=== PATIENT | female | born 1945 ===

== ENCOUNTER 2018-04-22 15:45 | Emergency (ER) | payer OTHER, MEDICARE ==
--- NOTE | 2018-04-22 16:44 | EDPHY ---
H & P Stated Complaint: isatu gland left jaw, fever, pain Time Seen by Provider: 04/22/18 16:43 HPI/ROS: HPI: This is a 72-year-old female who presents with Chief Complaint: swollen gland left jaw, fever, pain Location: Left jaw Quality: Swollen glands and pain Duration: 2 week Signs and Symptoms: + subjective fever, no nausea, no vomiting, no diarrhea, no urinary symptoms, no chest pain, no shortness of breath, no wheezing, no cough, + sore throat, no neck stiffness, no joint pain, + swollen glands, no ear pain, no rash Timing: Worsening Severity: Moderate to severe Context: Patient reports that she is generally healthy around March 31, 2018 came under the weather with the "flu."She reports that her symptoms lasted approximately 2 weeks. Last Friday she started to developed some right jaw pain with swollen glands. Over the last 4 days the pain and swelling has continued to increase. She is unable to open her mouth fully at this point. Reports that she spiked a fever of 102 F today for the 1st time. She saw ENT outpatient yesterday Elisa Hunt, who started her on Augmentin, and patient has taken 3 doses of this medication. She reports that the pain is "unbearable today." ENT took a culture and she was called today and was told that it was negative for strep. She advised that "the ENT told her that this was a tonsillar abscess but did not perform an incision and drainage in the office." Last drink was water and around 12 noon. Has not eaten food in several days. Modifying Factors: Augmentin Comment: ROS: A comprehensive 10 system review of systems is otherwise negative aside from elements mentioned in the history of present illness. MEDICAL/SURGICAL/SOCIAL HISTORY: Medical history: Generally healthy. Does not take any regular medications. Surgical history: Denies Social history: Never smoked. . Retired. Family history noncontributory. CONSTITUTIONAL: Nontoxic-appearing elderly white female, awake and alert, no obvious distress HEENT: Atraumatic and normocephalic, PERRL, EOMI. Nares patent; no rhinorrhea; no nasal mucosal edema. Tympanic membranes clear. Oropharynx clear, only able to open mouth 1 finger with wide-+trismus and unable to visualize posterior pharynx, uvula, tonsils. dry oral mucosa. Airway patent. Tenderness over the right TMJ joint with right sided anterior cervical lymphadenopathy. No meningismus. Cardiovascular: Normal S1/S2, regular rate, regular rhythm, without murmur rub or gallop. PULMONARY/CHEST: Symmetrical and nontender. Clear to auscultation bilaterally. Good air movement. No accessory muscle usage. ABDOMEN: Soft, nondistended, nontender, no rebound, no guarding, no peritoneal signs, no masses or organomegaly. No CVAT. EXTREMITIES: 2/2 pulses, strength 5/5, no deformities, no clubbing, no cyanosis or edema. NEUROLOGICAL: no focal neuro deficits. GCS 15. SKIN: Warm and dry, no erythema. no rash. Good capillary refill. Source: Patient Exam Limitations: No limitations - Personal History Current Tetanus/Diphtheria Vaccine: Unsure Current Tetanus Diphtheria and Acellular Pertussis (TDAP): Unsure - Medical/Surgical History Hx Asthma: No Hx Chronic Respiratory Disease: No Hx Diabetes: No Hx Cardiac Disease: No Hx Renal Disease: No Hx Cirrhosis: No Hx Alcoholism: No Hx HIV/AIDS: No Hx Splenectomy or Spleen Trauma: No Other PMH: denials - Social History Smoking Status: Never smoked Constitutional: Initial Vital Signs Temperature (C) 37 C 04/22/18 15:56 Heart Rate 98 04/22/18 15:56 Respiratory Rate 16 04/22/18 15:56 Blood Pressure 151/82 H 04/22/18 15:56 O2 Sat (%) 95 04/22/18 15:56 O2 Delivery Mode Room Air Allergies/Adverse Reactions: No Known Allergies Allergy (Unverified 04/22/18 15:55) Home Medications: Medication Instructions Recorded NK [No Known Home Meds] 04/22/18 Medical Decision Making - Diagnostics Imaging Results: Imaging Impressions Neck CT 04/22/18 16:49 Impression: 1. Small fluid collection medial to the right posterior lower jaw molar, 1 x 1.2 x 1.8 cm. 2. The root of the last molar tooth on the right lower jaw has broken through the medial cortex of the mandible. Could this be an instigating event for the fluid collection? 3. Associated parapharyngeal space swelling on the right, and extensive amount of phlegmonic inflamed tissue, 16 to 20 mm in depth, caudal to the abscess along the medial cortex of the lower jaw. This is displacing the base of the tongue to the left side. 4. Enlarged draining veins on the right, without identifiable central venous occlusion. 5. Incidental left thyroid dominant nodule of 2 x 1 x 1.2 cm. ED Course/Re-evaluation: Vital signs reviewed and tachycardia upon arrival. Does not meet sepsis criteria. IV access, laboratory studies, CT soft tissue neck ordered I-STAT Patient given 2 L normal saline, IV Decadron 10 mg, IV morphine 2 mg Will not recall to this patient as performed outpatient and negative strep. 1743: Labs reviewed. No signs of anemia/platelet dysfunction/BRITTNEE/electrolyte imbalance. WBC 11 K with left shift 1829: Called by radiologist, Dr. Tomlinson, who advised that CT neck shows small fluid collection medial to the right posterior lower jaw molar measuring 1 x 1.2 x 1.8 cm. Through the last molar tooth on the right lower jaw has broken through the medial cortex of the mandible. Associated parapharyngeal space swelling on the right an extensive amount of phlegmon kenneth inflamed tissue measuring 16-20 mm in depth caudal to the abscess along the medial cortex of the lower jaw this is displaced in the base of the tongue to the left side. Enlarged draining veins on the right without identifiable central venous occlusion. No tonsillar abscess. 1834: ED decision to consult Oral surgery. 1936: Called by [facility]. Maxillofacial surgeon, Dr. Matti Bailey, requesting CT soft tissue neck be uploaded into their system to review. 1956: Spoke with Dr. Bailey who kindly agrees to accept patient in transfer to the emergency room at [facility]. Request Unasyn 3 g to be given. Spoke with Dr. Bah ER attending who kindly agrees to accept patient ER to ER transfer. This patient was seen under the supervision of my supervising physician. I evaluated care for this patient with attending. Discussed this patient with Dr. Patel who did not see the patient. Differential Diagnosis: Differential diagnosis includes but is not limited to tonsillar abscess, tonsillar pharyngitis, lymphadenitis, malignancy. - Data Points Laboratory Results: Laboratory Results 04/22/18 16:58 04/22/18 16:58 04/22/18 04/22/18 04/22/18 17:03 16:58 16:58 WBC 11.14 10^3/uL H 10^3/uL (3.80-9.50) RBC 4.62 10^6/uL 10^6/uL (4.18-5.33) Hgb 13.4 g/dL g/dL (12.6-16.3) POC Hgb 14.3 gm/dL gm/dL (12.6-16.3) Hct 40.8 % % (38.0-47.0) POC Hct 42 % % (38-47) MCV 88.3 fL fL (81.5-99.8) MCH 29.0 pg pg (27.9-34.1) MCHC 32.8 g/dL g/dL (32.4-36.7) RDW 12.5 % % (11.5-15.2) Plt Count 385 10^3/uL 10^3/uL (150-400) MPV 8.9 fL fL (8.7-11.7) Neut % (Auto) 81.6 % H % (39.3-74.2) Lymph % (Auto) 11.8 % L % (15.0-45.0) [place] % (Auto) 6.0 % % (4.5-13.0) Eos % (Auto) 0.2 % L % (0.6-7.6) Baso % (Auto) 0.1 % L % (0.3-1.7) Nucleat RBC Rel Count 0.0 % % (0.0-0.2) Absolute Neuts (auto) 9.10 10^3/uL H 10^3/uL (1.70-6.50) Absolute Lymphs (auto) 1.31 10^3/uL 10^3/uL (1.00-3.00) Absolute Monos (auto) 0.67 10^3/uL 10^3/uL (0.30-0.80) Absolute Eos (auto) 0.02 10^3/uL L 10^3/uL (0.03-0.40) Absolute Basos (auto) 0.01 10^3/uL L 10^3/uL (0.02-0.10) Absolute Nucleated RBC 0.00 10^3/uL 10^3/uL (0-0.01) Immature Gran % 0.3 % % (0.0-1.1) Immature Gran # 0.03 10^3/uL 10^3/uL (0.00-0.10) POC Sodium 141 mEq/L mEq/L (135-145) Sodium 137 mEq/L mEq/L (135-145) POC Potassium 3.5 mEq/L mEq/L (3.3-5.0) Potassium 4.0 mEq/L mEq/L (3.5-5.2) POC Chloride 106 mEq/L mEq/L (97-110) Chloride 109 mEq/L mEq/L (97-110) Carbon Dioxide 19 mEq/l L mEq/l (22-31) Anion Gap 9 mEq/L mEq/L (6-14) POC BUN 8 mg/dL mg/dL (7-23) BUN 10 mg/dL mg/dL (7-23) Creatinine 0.6 mg/dL mg/dL (0.6-1.0) POC Creatinine 0.6 mg/dL mg/dL (0.6-1.0) Estimated GFR > 60 Glucose 98 mg/dL mg/dL (70-100) POC Glucose 99 mg/dL mg/dL (70-100) Calcium 8.5 mg/dL mg/dL (8.5-10.4) Medications Given: Discontinued Medications Dexamethasone (Decadron Injection) 10 mg IVP EDNOW ONE Stop: 04/22/18 16:50 Last Admin: 04/22/18 17:12 Dose: 10 mg Sodium Chloride (Ns) 1,000 mls @ 0 mls/hr IV ONCE ONE; Wide Open PRN Reason: Protocol Stop: 04/22/18 16:49 Last Admin: 04/22/18 17:11 Dose: 1,000 mls Morphine Sulfate (Morphine) 2 mg IVP EDNOW ONE Stop: 04/22/18 16:50 Last Admin: 04/22/18 17:12 Dose: 2 mg Point of Care Test Results: Chemistry 04/22/18 17:03 POC Sodium 141 mEq/L mEq/L (135-145) POC Potassium 3.5 mEq/L mEq/L (3.3-5.0) POC Chloride 106 mEq/L mEq/L (97-110) POC BUN 8 mg/dL mg/dL (7-23) POC Creatinine 0.6 mg/dL mg/dL (0.6-1.0) POC Glucose 99 mg/dL mg/dL (70-100) ISTAT H&H 04/22/18 17:03 POC Hgb 14.3 gm/dL gm/dL (12.6-16.3) POC Hct 42 % % (38-47) Departure - Departure Disposition: Acute Care Hospital Not [facility] Clinical Impression: Inability to open mouth, Cervical lymphadenopathy, Dental abscess Condition: Fair
[2018-04-22] MEDS ORDERED: NS 1,000 ML IV ONE ×2 (16:48→20:03)
[2018-04-22] MEDS ORDERED: DEXAMETHASONE 10 MG/ML VIAL IVP ONE (16:49)
[2018-04-22 17:20] LABS: PLATELET COUNT 385 10^3/uL (150-400)
[2018-04-22] MEDS ORDERED: IOPAMIDOL (ISOVUE 370) 100 ML BTL IV ONE (17:29)
[2018-04-22] MEDS ORDERED: AMPICILLIN/SULBACTAM 3 GM in NS 100 ML IV ONE (19:54)
[2018-04-22 22:07] VITALS: BP 140/90
== END 2018-04-22 22:07 | disposition short-term general hospital (02) ==
DX: K04.7 Periapical abscess without sinus (principal); E86.9 Volume depletion, unspecified
CPT/HCPCS: 70491; 96361; 96365; 96375; 99285; J0295; J1100; J2270; Q9967; 82435-PO; 82565-PO; 82947-PO; 84132-PO; 84295-PO; 84520-PO; 85014-ER